=== PATIENT | female | born 1965 | race Caucasian/White ===

== ENCOUNTER 2017-02-19 00:20 | Emergency (ER) | payer SELFPAY ==
[2017-02-19 01:09] VITALS: BP 160/98; BMI 20.9
[2017-02-19] MEDS ORDERED: AZITHROMYCIN 250 MG TABLET PO ONE (01:28)
[2017-02-19] MEDS ORDERED: predniSONE 20 MG TABLET (UD) PO ONE (01:28)
[2017-02-19] MEDS ORDERED: ALBUTEROL SO4 0.083% IH SOL 2.5 MG/3 ML VIAL.NEB. NEB ONE (01:28)
--- NOTE | 2017-02-19 01:43 | PDOC ---
History of Present Illness - General Chief Complaint: Cold Symptoms Stated Complaint: SORE THROAT,SOB Time Seen by Provider: 02/19/17 01:13 History Source: Patient Exam Limitations: No Limitations - History of Present Illness Initial Comments: 02/19/17 01:38 51yo Female patient with no significant past medical history presents to ED c/o cold symptoms, and persistent cough x 3 weeks not getting any better. 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 Patient reports she visited with her PMD and was diagnosed with viral infection and sent home. She now reports cough up yellow sputum. Denies hx: Asthma, or smoking. She denies any other complaints at this time. Timing/Duration: reports: constant, week (3) Severity: reports: moderate. denies: mild, severe Episode Description: See HPI Possible Cause: Yes: illness exposure. No: no prior episodes, other, allergen exposure, chronic episodes, frequent episodes, irritant gases exposure, occasional episodes, smoke exposure, unknown cause Associated Symptoms: reports: cough. denies: denies symptoms, chest pain/ soreness, dizziness, earache, facial pain, fever/chills, headache, lightheadedness, muscle aches, nasal congestion, nasal drainage, shortness of breath, sinus infection, sore throat, wheezing, other Past History - Travel Traveled outside of the country in the last 30 days: No Close contact w/someone who was outside of country & ill: No - Past Medical History Allergies/Adverse Reactions: Allergies Allergy/AdvReac Type Severity Reaction Status Date / Time No Known Allergies Allergy Verified 02/19/17 01:07 Home Medications: Ambulatory Orders Acetaminophen with Codeine [Acetaminophen-Codeine Solution] 12.5 ml PO HS PRN # 100 ml MDD 12.5 ml 02/19/17 Albuterol Sulfate Inhaler - [Ventolin Hfa Inhaler -] 1 - 2 puff IH Q4H PRN #1 inhaler 02/19/17 Azithromycin [Zithromax -] 250 mg PO DAILY #4 tablet 02/19/17 Methylprednisolone [Medrol Dose Anival] 4 mg PO ASDIR #21 tablet 02/19/17 HTN: Yes - Suicide/Smoking/Psychosocial Hx Smoking Status: No Smoking History: Never smoked Have you smoked in the past 12 months: No Number of Cigarettes Smoked Daily: 0 Information on smoking cessation initiated: No Hx Alcohol Use: No Drug/Substance Use Hx: No Substance Use Type: None Respiratory Specific PMHX - Complaint Specific PMHX Angina: No Bronchitis: No Pneumonia: No Pulmonary Embolus: No TB (Tuberculosis): No Review of Systems - Review of Systems Able to Perform ROS?: Yes Is the patient limited Syriac proficient: No Constitutional: No: Chills, Fever Respiratory: Yes: Cough, Productive cough. No: Shortness of Breath, SOB with Exertion, SOB at Rest, Stridor, Wheezing, Hemoptysis Cardiac (ROS): No: Chest Pain, Palpitations, Syncope, Chest Tightness ABD/GI: No: Constipated, Diarrhea, Nausea, Poor Appetite, Poor Fluid Intake, Vomiting, Abdominal cramping All Other Systems: Reviewed and Negative *Physical Exam - Vital Signs Last Vital Signs Temp Pulse Resp BP Pulse Ox 87 14 160/98 98 02/19/17 01:07 02/19/17 01:07 02/19/17 01:07 02/19/17 01:07 - Physical Exam General Appearance: Yes: Nourished, Appropriately Dressed, Mild Distress. No: Apparent Distress, Moderate Distress, Severe Distress HEENT: positive: EOMI, KEVIN, Normal ENT Inspection, Normal Voice, Symmetrical, TMs Normal, Pharynx Normal. negative: Pharyngeal Erythema, Tonsillar Exudate, Tonsillar Erythema, Nasal Congestion, Rhinorrhea, Sinus Tenderness, TM Bulging, TM Dull, TM Erythema Neck: positive: Trachea midline, Normal Thyroid, Supple. negative: Tender, Rigid, Decreased range of motion, Stridor, Lymphadenopathy (R), Lymphadenopathy (L), Tender lateral, Tender midline Respiratory/Chest: positive: Lungs Clear, Normal Breath Sounds. negative: Chest Tender, Respiratory Distress, Accessory Muscle Use, Labored Respiration, Rapid RR, Decreased Breath Sounds, Paradoxal Breathing, Rhonchi, Stridor, Wheezing Cardiovascular: positive: Regular Rhythm, Regular Rate Gastrointestinal/Abdominal: positive: Normal Bowel Sounds, Soft. negative: Distended, Guarding, Rebound, Tenderness Musculoskeletal: positive: Normal Inspection. negative: CVA Tenderness, Decreased Range of Motion, Vertebral Tenderness Extremity: positive: Normal Capillary Refill, Normal Inspection, Normal Range of Motion. negative: Pedal Edema, Swelling, Calf Tenderness, Erythema, Inflammation Integumentary: positive: Normal Color, Dry, Warm. negative: Erythema, Cold, Moist, Rash, Swelling Neurologic: positive: thread roller II-XII NML intact, Fully Oriented, Alert, Normal Mood/ Affect, Normal Response, Motor Strength 5/5 *DC/Admit/Observation/Transfer Diagnosis at time of Disposition: Bronchitis - Discharge Dispostion Disposition: HOME Condition at time of disposition: Stable Admit: No - Prescriptions Prescriptions: Acetaminophen with Codeine [Acetaminophen-Codeine Solution] 12.5 ml PO HS PRN # 100 ml MDD 12.5 ml PRN Reason: coughing, fever Methylprednisolone [Medrol Dose Anival] 4 mg PO ASDIR #21 tablet Albuterol Sulfate Inhaler - [Ventolin Hfa Inhaler -] 1 - 2 puff IH Q4H PRN #1 inhaler PRN Reason: Difficulty breathing Azithromycin [Zithromax -] 250 mg PO DAILY #4 tablet - Patient Instructions Printed Discharge Instructions: DI for Acute Bronchitis Additional Instructions: Take medications as prescribed. Do not drive, drink alcohol, or operate heavy machinery while taking Codeine. Follow up with your primary care provider this week for further evaluation. NO work x 2 days with rest. Drink plenty fluids ( water). Print Language: SRI LANKAN - Post Discharge Activity Forms/Work/School Notes: Back to Work
[2017-02-19] MEDS ORDERED: predniSONE 20 MG TABLET (UD) ONE (01:46)
[2017-02-19] MEDS ORDERED: AZITHROMYCIN 250 MG TABLET ONE (01:46)
[2017-02-19 02:19] VITALS: PULSE 84
== END 2017-02-19 02:20 | disposition home or self-care (01) ==
LOC: JER 00:20
PROC: 3E0F7GC Introduction of Other Therapeutic Substance into Respiratory Tract, Via Natural or Artificial Opening (ICD-10-PCS; principal; 2017-02-19)
DX: J40 Bronchitis, not specified as acute or chronic (principal); I10 Essential (primary) hypertension
CPT/HCPCS: 99281-25

== ENCOUNTER 2017-09-07 03:29 | Inpatient (IN) | payer OTHER ==
--- NOTE | 2017-09-07 03:55 | PDOC ---
History of Present Illness - General History Source: Patient Exam Limitations: No Limitations - History of Present Illness Initial Comments: 09/07/17 04:46 Best Contact: Pmhx: N/A Pshx: N/A Allergies: NKDA 52-year-old female presents to the emergency department complaining of lower abdominal pain 2 weeks. Pain is described as 6/10 dull nonradiating intermittent discomfort with nausea. The pain is exacerbated on touch and is are no alleviating factors. Patient denies vomiting, fever/chills, neck/back pains, chest pain, shortness of breath, flank pains, urinary symptoms: Frequency /urgency/hesitancy, hematuria. Timing/Duration: reports: getting worse <Dariana Kirk - Last Filed: 09/07/17 07:01> <Hannah Hensley - Last Filed: 09/07/17 07:34> - General Chief Complaint: Diarrhea Stated Complaint: FEVER, LOOSE STOOL Time Seen by Provider: 09/07/17 03:55 Past History - Past Medical History COPD: No HTN: Yes - Suicide/Smoking/Psychosocial Hx Smoking Status: No Smoking History: Never smoked Have you smoked in the past 12 months: No Number of Cigarettes Smoked Daily: 0 Information on smoking cessation initiated: No Hx Alcohol Use: No Drug/Substance Use Hx: No Substance Use Type: None <Dariana Kirk - Last Filed: 09/07/17 07:01> <Hannah Hensley - Last Filed: 09/07/17 07:34> - Past Medical History Allergies/Adverse Reactions: Allergies Allergy/AdvReac Type Severity Reaction Status Date / Time No Known Allergies Allergy Verified 09/07/17 03:49 Home Medications: Ambulatory Orders Albuterol Sulfate Inhaler - [Ventolin HFA Inhaler -] 1 - 2 puff IH Q4H PRN #1 inhaler 02/19/17 Prednisone [Prednisone 50 MG TABLETS] 50 mg PO DAILY #5 tablet 02/28/17 predniSONE [Deltasone -] 20 mg PO DAILY #5 tablet 02/28/17 Review of Systems - Review of Systems Able to Perform ROS?: Yes Comments:: 09/07/17 04:47 CONSTITUTIONAL: Absent: fever, chills, diaphoresis, generalized weakness, malaise, loss of appetite HEENT: Absent: rhinorrhea, nasal congestion, throat pain, throat swelling, difficulty swallowing, mouth swelling, ear pain, eye pain, visual Changes CARDIOVASCULAR: Absent: chest pain, loss of consciousness, palpitations, irregular heart rate, peripheral edema RESPIRATORY: Absent: cough, shortness of breath, dyspnea with exertion, orthopnea, wheezing, stridor, hemoptysis GASTROINTESTINAL: +lower abd pain Absent: abdominal distension, nausea, vomiting, constipation, melena, hematochezia GENITOURINARY: Absent: dysuria, frequency, urgency, hesitancy, hematuria, flank pain, genital pain MUSCULOSKELETAL: Absent: myalgia, arthralgia, joint swelling SKIN: Absent: rash, itching, pallor HEMATOLOGIC/IMMUNOLOGIC: Absent: easy bleeding, easy bruising, lymphadenopathy, frequent infections ENDOCRINE: Absent: unexplained weight gain, unexplained weight loss, heat intolerance, cold intolerance Is the patient limited Serbian proficient: No <Dariana Kirk - Last Filed: 09/07/17 07:01> *Physical Exam - Vital Signs Last Vital Signs Temp Pulse Resp BP Pulse Ox 97.6 F 72 20 142/80 98 09/07/17 03:49 09/07/17 03:49 09/07/17 03:49 09/07/17 03:49 09/07/17 03:49 - Physical Exam Comments: 09/07/17 04:49 GENERAL: Well developed, well nourished. Awake and alert. No acute distress. HEENT: Normocephalic, atraumatic. PERRLA, EOMI. No conjunctival pallor. Sclera are non- icteric. Moist mucous membranes. Oropharynx is clear. NECK: Supple. Full ROM. No JVD. Carotid pulses 2+ and symmetric, without bruits. No thyromegaly. No lymphadenopathy. CARDIOVASCULAR: Regular rate and rhythm. No murmurs, rubs, or gallops. Distal pulses are 2+ and symmetric. PULMONARY: No evidence of respiratory distress. Lungs clear to auscultation bilaterally. No wheezing, rales or rhonchi. ABDOMINAL: +lower abd pain Soft. Non-distended. No rebound or guarding. No organomegaly. Normoactive bowel sounds. MUSCULOSKELETAL Normal range of motion at all joints. No bony deformities or tenderness. No CVA tenderness. EXTREMITIES: No cyanosis. No clubbing. No edema. No calf tenderness. SKIN: Warm and dry. Normal capillary refill. No rashes. No jaundice. <YelenaDariana - Last Filed: 09/07/17 07:01> - Vital Signs Last Vital Signs Temp Pulse Resp BP Pulse Ox 98 F 89 15 125/79 100 09/07/17 06:17 09/07/17 06:17 09/07/17 06:17 09/07/17 06:17 09/07/17 06:17 <Hannah Hensley - Last Filed: 09/07/17 07:34> ED Treatment Course - LABORATORY CBC & Chemistry Diagram: 09/07/17 04:06 09/07/17 04:06 - RADIOLOGY Radiograph Interpretation: 09/07/17 06:50 CAT scan abdomen and pelvis: Distended segments of small bowel suggesting a low- grade small bowel shortly after level of the terminal ileum <Dariana Kirk - Last Filed: 09/07/17 07:01> - LABORATORY CBC & Chemistry Diagram: 09/07/17 04:06 09/07/17 04:06 - ADDITIONAL ORDERS Additional order review: Laboratory Results 09/07/17 09/07/17 04:06 04:06 Sodium 141 Potassium 3.7 Chloride 109 H Carbon Dioxide 25 Anion Gap 7 L BUN 15 Creatinine 0.6 Creat Clearance w eGFR > 60 Random Glucose 105 Calcium 8.0 L Total Bilirubin 0.3 AST 34 ALT 49 Alkaline Phosphatase 160 H Total Protein 6.6 Albumin 3.2 L Lipase 202 09/07/17 04:06 RBC 4.49 MCV 85.1 MCHC 35.1 RDW 14.5 MPV 7.9 Neutrophils % 56.4 Lymphocytes % 31.4 Monocytes % 11.2 H Eosinophils % 0.7 Basophils % 0.3 - Medications Given in the ED: ED Medications Discontinued Medications Generic Name Dose Route Start Last Admin Trade Name Freq PRN Reason Stop Dose Admin Sodium Chloride 1,000 mls @ 1,000 mls/hr 09/07/17 03:56 09/07/17 04:04 Normal Saline - IV 09/07/17 04:55 1,000 mls/hr ASDIR STA Administration <Hannah Hensley - Last Filed: 09/07/17 07:34> Progress Note - Progress Note Progress Note: 0653hrs: Microblogged hospitalist 0656hrs: Called Dr. Pisano/surgery fitness consultant [phone] 0705hrs: Signed out to SKYLA Hensley <Dariana Kirk - Last Filed: 09/07/17 07:01> *DC/Admit/Observation/Transfer <Dariana Kirk - Last Filed: 09/07/17 07:01> - Discharge Dispostion Decision to Admit order: Yes <Hannah Hensley - Last Filed: 09/07/17 07:34> Diagnosis at time of Disposition: SBO (small bowel obstruction) - Discharge Dispostion Condition at time of disposition: Guarded
[2017-09-07] MEDS ORDERED: SODIUM CHLORIDE 1,000 ML IV STA (03:56)
[2017-09-07 04:13] LABS: BASO % 0.3 % (0-2.0); EOS % 0.7 % (0-4.5); HEMATOCRIT 38.2 % (32.4-45.2); HEMOGLOBIN 13.4 GM/dL (10.7-15.3); LYMPH % 31.4 % (8-40); MCH 29.8 pg (25.7-33.7); MCHC 35.1 g/dl (32.0-36.0); MEAN CELL VOLUME 85.1 fl (80-96); MEAN PLT VOLUME 7.9 fl (7.5-11.1); MONO % 11.2 % (3.8-10.2); NEUT % 56.4 % (42.8-82.8); PLATELET COUNT 319 K/MM3 (134-434); RBC 4.49 M/mm3 (3.60-5.2); RDW 14.5 % (11.6-15.6); WHITE BLOOD COUNT 8.6 K/mm3 (4.0-10.0)
[2017-09-07 04:42] LABS: ALBUMIN 3.2 g/dl (3.4-5.0); ANION GAP 7 (8-16); BILIRUBIN,TOTAL 0.3 mg/dL (0.2-1.0); BLOOD UREA NITROGEN 15 mg/dL (7-18); CHLORIDE 109 mmol/L (98-107); CO2 25 mmol/L (21-32); CREATININE 0.6 mg/dL (0.55-1.02); GLUCOSE,RANDOM 105 mg/dL (74-106); POTASSIUM 3.7 mmol/L (3.5-5.1); SGOT/AST 34 U/L (15-37); SGPT/ALT 49 U/L (12-78); SODIUM 141 mmol/L (136-145); TOT PROT 6.6 g/dl (6.4-8.2)
[2017-09-07 04:43] LABS: ALK PHOS 160 U/L (45-117)
[2017-09-07] MEDS ORDERED: morphine SULFATE 4 MG/ML VIAL IVPUSH PRN (07:39)
[2017-09-07] MEDS ORDERED: SODIUM CHLORIDE 1,000 ML IV SCH (07:45)
[2017-09-07] MEDS ORDERED: LIDOCAINE HCL 2% JELLY 10 ML CARTRIDGE ONE (07:57)
--- NOTE | 2017-09-07 08:16 | HP ---
CHIEF COMPLAINT: Abdominal Pain and Diarrhea PCP: None HISTORY OF PRESENT ILLNESS: Patient is a 52 year old female with no significant PMHx who presents for lower abdominal pain that started two weeks ago associated with nonbloody watery diarrhea and nausea but no vomiting. Patient reports a nonradiating, intermittent, 6/10 dull-like lower abdomnial pain that is exacerbated when she eats. Patient reports when she does not eat, the pain is better controlled. When the pain does occur, it lasts for several hours. She reports no history of similar pain. She states she's had this for a while now but was unable to get a check up because of how busy her life is. She denies any abdominal surgeries in the past. Patient denies colonoscopy in the past. Otherwise, patient denies fever, chills, chest pain, palpitations, shortness of breath, dysuria, frequency, hematuria, melena, hematochezia, acute vision changes, loss of consciousness. Patient reports never having a colonoscopy done. ER course was notable for: (1) CT revealing SBO (2) IV NS (3) Recent Travel: Denies PAST MEDICAL HISTORY: Denies PAST SURGICAL HISTORY: Denies Social History: Smoking: Denies Alcohol: Denies Drugs: Denies Lives with Daughter and grandchild Family History: Denies Allergies: NKDA HOME MEDICATIONS: Home Medications Medication Instructions Recorded Albuterol Sulfate Inhaler - 1 - 2 puff IH Q4H PRN #1 inhaler 02/19/17 [Ventolin HFA Inhaler -] Prednisone [Prednisone 50 MG 50 mg PO DAILY #5 tablet 02/28/17 TABLETS] predniSONE [Deltasone -] 20 mg PO DAILY #5 tablet 02/28/17 REVIEW OF SYSTEMS CONSTITUTIONAL: Absent: fever, chills, diaphoresis, generalized weakness, malaise, loss of appetite, weight change HEENT: Absent: rhinorrhea, nasal congestion, throat pain, throat swelling, difficulty swallowing, mouth swelling, ear pain, eye pain, visual changes CARDIOVASCULAR: Absent: chest pain, syncope, palpitations, irregular heart rate, lightheadedness , peripheral edema RESPIRATORY: Absent: cough, shortness of breath, dyspnea with exertion, orthopnea, wheezing, stridor, hemoptysis GASTROINTESTINAL: abdominal pain, diarrhea, nausea Absent: abdominal distension, vomiting, constipation, melena, hematochezia GENITOURINARY: Absent: dysuria, frequency, urgency, hesitancy, hematuria, flank pain, genital pain MUSCULOSKELETAL: Absent: myalgia, arthralgia, joint swelling, back pain, neck pain SKIN: Absent: rash, itching, pallor HEMATOLOGIC/IMMUNOLOGIC: Absent: easy bleeding, easy bruising, lymphadenopathy, frequent infections ENDOCRINE: Absent: unexplained weight gain, unexplained weight loss, heat intolerance, cold intolerance NEUROLOGIC: Absent: headache, focal weakness or paresthesias, dizziness, unsteady gait, seizure, mental status changes, bladder or bowel incontinence PSYCHIATRIC: Absent: anxiety, depression, suicidal or homicidal ideation, hallucinations. PHYSICAL EXAMINATION Vital Signs - 24 hr 09/07/17 09/07/17 03:49 06:17 Temperature 97.6 F 98 F Pulse Rate 72 Pulse Rate [ 89 Apical] Respiratory 20 15 Rate Blood Pressure 142/80 Blood Pressure 125/79 [Right Arm] O2 Sat by Pulse 98 100 Oximetry (%) GENERAL: Awake, alert, and fully oriented, in no acute distress. HEAD: Normal with no signs of trauma. EYES: Pupils equal, round and reactive to light, extraocular movements intact, sclera anicteric, conjunctiva clear. No lid lag. EARS, NOSE, THROAT: Oropharynx clear without exudates. Moist mucous membranes. NECK: Normal range of motion, supple without lymphadenopathy, JVD, or masses. LUNGS: Breath sounds equal, clear to auscultation bilaterally. No wheezes, and no crackles. No accessory muscle use. HEART: Regular rate and rhythm, normal S1 and S2 without murmur, rub or gallop. ABDOMEN: Soft, nontender, not distended, hyperactive bowel sounds, no guarding, no rebound, no masses. MUSCULOSKELETAL: No CVA tenderness. UPPER EXTREMITIES: No peripheral edema. LOWER EXTREMITIES: No peripheral edema. NEUROLOGICAL: Cranial nerves II-XII intact. Normal speech. Motor strength 5/5 bilaterally with sensory intact PSYCHIATRIC: Cooperative. Good eye contact. Appropriate mood and affect. SKIN: Warm, dry, normal turgor, no rashes or lesions noted, normal capillary refill. Laboratory Results - last 24 hr CBC, BMP 09/07/17 04:06 09/07/17 04:06 Laboratory Tests 09/07/17 09/07/17 04:06 04:06 AST 34 ALT 49 Alkaline Phosphatase 160 H Total Protein 6.6 Lipase 202 IMAGES: CT Abdomen (09/07/17): Distended segments of small bowel suggesting a low-grade small bowel shortly after level of the terminal ileum, as per night hawk. Official read pending ASSESSMENT/PLAN: Patient is a 52 year old female who presented for a 2 week history of lower abdominal pain associated with nausea and watery diarrhea. Patient was found to have low grade small bowel and admitted for further monitoring and management. Small Bowel Obstruction- Low grade -Official CT read pending -NPO for now -LR @100cc/hr -Patient hesitant to have NG tube placed. Will defer for now as patient currently has no abdominal distention and no vomiting. Surgeron on board -Surgery consult placed -Morphine 4mg IVP Q4H PRN for pain -Will give referral to Dr. Manzo for colonoscopy outpatient upon discharge F/E/N -IV LR @100cc/hr -Potassium 3.7. Replete and repeat -NPO Prophylaxis -Low risk. EAM. SCD's for DVT -No GI required Disposition -Full code -Surgery consult pending and official CT read Nyla Garcia MD PGY-2 Visit type - Emergency Visit Emergency Visit: Yes ED Registration Date: 09/07/17 Care time: The patient presented to the Emergency Department on the above date and was hospitalized for further evaluation of their emergent condition. - New Patient This patient is new to me today: Yes Date on this admission: 09/07/17 - Critical Care Critical Care patient: No Hospitalist Screening - Colonoscopy Questionnaire Colonoscopy Questionnaire: Colonoscopy Questionnaire - Patient: 50 - 75 years old and never had a screening colonoscopy: No History of colon or rectal polyps, or CA: No History of IBD, Crohn's disease or UC: No History of abdominal radiation therapy as a child: No - Relative: 1 with colon or rectal CA, or polyps at age 60 or younger: No Colon or rectal CA diagnosed at age 45 or younger: No Multiple relatives with colon or rectal CA: No - Outcome: Screening Result: Negative Screen
[2017-09-07] MEDS: LACTATED RINGERS SOLUTION 1,000 ML/1,000 ML INFUS.BAG IV SCH (08:52)
--- NOTE | 2017-09-07 09:14 | PN ---
Teaching Attending Note Name of Resident: Nyla Garcia ATTENDING PHYSICIAN STATEMENT I saw and evaluated the patient. I reviewed the resident's note and discussed the case with the resident. I agree with the resident's findings and plan as documented. SUBJECTIVE: This is a 52 year old woman with no significant medical history who comes to the ED complaining of lower abdominal pain, watery diarrhea, and nausea x 2 weeks. Pain is worse when she eats. She denies melena, rectal bleeding, hematemesis. OBJECTIVE: Vital Signs Period Temp Pulse Resp BP Sys/Chandra Pulse Ox Last 24 Hr 97.6 F-98 F 72-89 15-20 125-142/79-80 98-100 HEART: S1S2, RRR LUNGS: Clear ABDOMEN: Soft, non-distended, mild lower abdominal tenderness, no rebound, no guarding, normal BS EXTREMITIES: No edema Laboratory Tests 09/07/17 09/07/17 09/07/17 04:06 04:06 04:06 WBC 8.6 RBC 4.49 Hgb 13.4 Hct 38.2 MCV 85.1 MCH 29.8 MCHC 35.1 RDW 14.5 Plt Count 319 MPV 7.9 Neutrophils % 56.4 Lymphocytes % 31.4 Monocytes % 11.2 H Eosinophils % 0.7 Basophils % 0.3 Sodium 141 Potassium 3.7 Chloride 109 H Carbon Dioxide 25 Anion Gap 7 L BUN 15 Creatinine 0.6 Creat Clearance w eGFR > 60 Random Glucose 105 Lactic Acid Calcium 8.0 L Total Bilirubin 0.3 AST 34 ALT 49 Alkaline Phosphatase 160 H Total Protein 6.6 Albumin 3.2 L Lipase 202 09/07/17 06:38 WBC RBC Hgb Hct MCV MCH MCHC RDW Plt Count MPV Neutrophils % Lymphocytes % Monocytes % Eosinophils % Basophils % Sodium Potassium Chloride Carbon Dioxide Anion Gap BUN Creatinine Creat Clearance w eGFR Random Glucose Lactic Acid 1.2 Calcium Total Bilirubin AST ALT Alkaline Phosphatase Total Protein Albumin Lipase Home Medications Medication Instructions Recorded Albuterol Sulfate Inhaler - 1 - 2 puff IH Q4H PRN #1 inhaler 02/19/17 [Ventolin HFA Inhaler -] Prednisone [Prednisone 50 MG 50 mg PO DAILY #5 tablet 02/28/17 TABLETS] predniSONE [Deltasone -] 20 mg PO DAILY #5 tablet 02/28/17 ASSESSMENT AND PLAN: This is a 52 year old woman with no significant medical history who presents to the ED with abdominal pain, nausea, and diarrhea. 1. Small bowel obstruction - NPO - IV fluid - No indication for NG tube at this time - Surgery consult - Abdominal x-rays in am
--- NOTE | 2017-09-07 10:15 | CONSULT ---
- Consultation REQUESTING PROVIDER: CONSULT REQUEST: We have been asked to surgically evaluate this patient for abdominal pain PCP:Anupam Bhagat MD HISTORY OF PRESENT ILLNESS: 2 weeks or more of non specific lower abdominal pain w/o nausea and or vomiting; no GI//CHANGER FIXER c/o o/w; she has never had a colonoscopy PMHx: asthma PSHx: none Home Medications Medication Instructions Recorded Albuterol Sulfate Inhaler - 1 - 2 puff IH Q4H PRN #1 inhaler 02/19/17 [Ventolin HFA Inhaler -] Prednisone [Prednisone 50 MG 50 mg PO DAILY #5 tablet 02/28/17 TABLETS] predniSONE [Deltasone -] 20 mg PO DAILY #5 tablet 02/28/17 Allergies Allergy/AdvReac Type Severity Reaction Status Date / Time No Known Allergies Allergy Verified 09/07/17 03:49 RPHYSICAL EXAM: GENERAL: Awake, alert, and fully oriented, in no acute distress. HEAD: Normal with no signs of trauma. EYES: sclera anicteric, conjunctiva clear. NECK: Normal ROM, supple without lymphadenopathy, JVD, or masses. ABDOMEN: Soft, nontender, not distended, normoactive bowel sounds, no guarding, no rebound, no masses. No organomegaly. MUSCULOSKELETAL: Normal ROM at all joints. No bony deformities or tenderness. No CVA tenderness. UPPER EXTREMITIES: 2+ pulses, warm, well-perfused. No cyanosis. Cap refill <2 seconds. No peripheral edema. LOWER EXTREMITIES: 2+ pulses, warm, well-perfused. No calf tenderness. No peripheral edema. NEUROLOGICAL: Normal speech, gait not observed. PSYCH: Cooperative. Good eye contact. Appropriate mood and affect. SKIN: Warm, dry, normal turgor, no rashes or lesions noted. Vital Signs Temperature 98 F 09/07/17 06:17 Pulse Rate 89 09/07/17 06:17 Respiratory Rate 15 09/07/17 06:17 Blood Pressure 125/79 09/07/17 06:17 O2 Sat by Pulse Oximetry (%) 100 09/07/17 06:17 Lab Results WBC 8.6 K/mm3 (4.0-10.0) 09/07/17 04:06 RBC 4.49 M/mm3 (3.60-5.2) 09/07/17 04:06 Hgb 13.4 GM/dL (10.7-15.3) 09/07/17 04:06 Hct 38.2 % (32.4-45.2) 09/07/17 04:06 MCV 85.1 fl (80-96) 09/07/17 04:06 MCHC 35.1 g/dl (32.0-36.0) 09/07/17 04:06 RDW 14.5 % (11.6-15.6) 09/07/17 04:06 Plt Count 319 K/MM3 (134-434) 09/07/17 04:06 Sodium 141 mmol/L (136-145) 09/07/17 04:06 Potassium 3.7 mmol/L (3.5-5.1) 09/07/17 04:06 Chloride 109 mmol/L (98-107) H 09/07/17 04:06 Carbon Dioxide 25 mmol/L (21-32) 09/07/17 04:06 Anion Gap 7 (8-16) L 09/07/17 04:06 BUN 15 mg/dL (7-18) 09/07/17 04:06 Creatinine 0.6 mg/dL (0.55-1.02) 09/07/17 04:06 Random Glucose 105 mg/dL (74-106) 09/07/17 04:06 Calcium 8.0 mg/dL (8.5-10.1) L 09/07/17 04:06 CT a/p reviewed IMP:abdominal pain of unknown etiologu PLAN; R/o IBD based on CT though doubt; Gi evaluation and colonoscopy; will f/u. Jose J Pisano MD FACS
[2017-09-08] MEDS: LACTATED RINGERS SOLUTION 1,000 ML/1,000 ML INFUS.BAG IV SCH ×4 (02:28→23:51)
[2017-09-08 08:16] LABS: HEMATOCRIT 41.7 % (32.4-45.2); HEMOGLOBIN 14.2 GM/dL (10.7-15.3); MCH 29.3 pg (25.7-33.7); MCHC 34.1 g/dl (32.0-36.0); MEAN PLT VOLUME 8.4 fl (7.5-11.1); PLATELET COUNT 358 K/MM3 (134-434); RBC 4.84 M/mm3 (3.60-5.2); RDW 14.8 % (11.6-15.6); WHITE BLOOD COUNT 8.7 K/mm3 (4.0-10.0)
--- NOTE | 2017-09-08 08:21 | PN ---
Physical Exam: SUBJECTIVE: Currently pt denies any complaints overnight. She reports feeling comfortable with resolution of her abdominal pain. She also endorses 2-3 loose stools per day for the past 2 weeks without any prior history. Pt denies f/c, melena, dysphagia, CP/discomfort, palpitations, shortness of breath, flushing of face, sick contacts, recent travel, recent ABX treatment, eating strange foods and history of IBD. OBJECTIVE: Vital Signs Period Temp Pulse Resp BP Sys/Chandra Pulse Ox Last 24 Hr 97.6 F-98.3 F 65-96 17-18 111-140/62-77 100-100 GENERAL: NAD, awake, alert, and fully oriented HEENT: EOMI, LORIN, sclera anicteric, moist mucosa LUNGS: CTA bilaterally, no wheezes, no crackles, no accessory muscle use. HEART: RRR, S1, S2 without murmur, rub or gallop. ABDOMEN: Soft, nondistended, normoactive BS, nontender, no guarding, no shifting dullness, no hepatomegaly appreciated EXTREMITIES: 2+ DP pulses, warm, no edema. PSYCH: Normal mood, normal affect. SKIN: Warm, dry, no rashes or lesions noted Active Medications Generic Name Dose Route Start Last Admin Trade Name Freq PRN Reason Stop Dose Admin Lactated Ringer's 1,000 ml in 1,000 mls @ 100 mls/hr 09/07/17 08:15 09/08/17 02:28 Lactated Ringers Solution IV 100 mls/hr ASDIR PAWAN Administration Influenza Virus Vaccine Quadrival 60 mcg 09/08/17 10:00 Flulaval Quad [id number] IM 09/08/17 10:01 .ONCE ONE Morphine Sulfate 2 mg 09/07/17 07:39 Morphine Sulfate IVPUSH Q4H PRN PAIN LEVEL 1 - 3 ASSESSMENT/PLAN: 1) Ileitis with acute mild grade SBO? --Pt's previous AXR showed no evidence of obstruction with some distention and retained contrast material --Dr. Manzo on case: --On review of CTAP he reports concern over ileitis as the cause of a possible delay in bowel function --F/u stool workup --C diff --IBD immunoassays --Ova and parasite --CRP, ESR --Possibiilty of EGD/colonoscopy in future --Pain control with Morphine 2mg IVP q4h FEN: LR @ 100cc/hr No electrolyte abnormalities today Clear liquid for now PPX: DVT - SCDs only GI - Not indicated currently Case discussed with Dr. Dirk Castillo, DO - IM PGY-1 Visit type - Emergency Visit Emergency Visit: No - New Patient This patient is new to me today: No - Critical Care Critical Care patient: No
[2017-09-08 08:28] LABS: INR 1.02 (0.82-1.09); PROTHROMBIN TIME (PATIENT) 11.5 SEC (9.7-13.0)
[2017-09-08 08:36] LABS: ALBUMIN 3.4 g/dl (3.4-5.0); ALK PHOS 118 U/L (45-117); ANION GAP 10 (8-16); BILIRUBIN,TOTAL 0.7 mg/dL (0.2-1.0); BLOOD UREA NITROGEN 11 mg/dL (7-18); CALCIUM 8.7 mg/dL (8.5-10.1); CHLORIDE 107 mmol/L (98-107); CO2 23 mmol/L (21-32); CREATININE 0.5 mg/dL (0.55-1.02); GLUCOSE,RANDOM 60 mg/dL (74-106); POTASSIUM 3.9 mmol/L (3.5-5.1); SGOT/AST 40 U/L (15-37); SGPT/ALT 48 U/L (12-78); SODIUM 140 mmol/L (136-145); TOT PROT 7.1 g/dl (6.4-8.2)
[2017-09-08] MEDS ORDERED: FLU VACCINE QUAD 60 MCG/0.5 ML (MDV 17-18) IM ONE (10:00)
--- NOTE | 2017-09-08 14:28 | CON.GI ---
Consult Consult Specialty:: GI Reason for Consultation:: abnormal CT, diarrhea x 2 weeks, RLQ pain - History of Present Illness History of Present Illness: Chart reviewed. Events noted. PEr initial intake: Patient is a 52 year old female with no significant PMHx who presents for lower abdominal pain that started two weeks ago associated with nonbloody watery diarrhea and nausea but no vomiting. Patient reports a nonradiating, intermittent, 6/10 dull-like lower abdomnial pain that is exacerbated when she eats. Patient reports when she does not eat, the pain is better controlled. When the pain does occur, it lasts for several hours. She reports no history of similar pain. She states she's had this for a while now but was unable to get a check up because of how busy her life is. She denies any abdominal surgeries in the past. Patient denies colonoscopy in the past. Otherwise, patient denies fever, chills, chest pain, palpitations, shortness of breath, dysuria, frequency, hematuria, melena, hematochezia, acute vision changes, loss of consciousness. Patient reports never having a colonoscopy done. CT A/P: distended distal ileum. At the time of this encounter, appears comfortable. Pain-free. Reports having loose stools 3-4/day-night x 2 weeks. No melena, hematochezia, dyspepsia, dysphagia, chronic GERD, or dyspepsia. Deneis weight loss, jaundice, joint, skin , back, eye symptoms. Denies ill contacts, recent travel, exposure to antibiotics, new medications, OTC/herbal remedies, eating out prior to the onset of the symptoms. No family Hx of IBD. No chronic GI issues prior to 2 weeks ago. - History Source History Provided By: Patient, Medical Record Limitations to Obtaining History: No Limitations - Past Medical History ...: No - Alcohol/Substance Use Hx Alcohol Use: No - Smoking History Smoking history: Never smoked Have you smoked in the past 12 months: No Aproximately how many cigarettes per day: 0 Home Medications - Allergies Allergies/Adverse Reactions: Allergies Allergy/AdvReac Type Severity Reaction Status Date / Time No Known Allergies Allergy Verified 09/07/17 03:49 - Home Medications Home Medications: Ambulatory Orders Albuterol Sulfate Inhaler - [Ventolin HFA Inhaler -] 1 - 2 puff IH Q4H PRN #1 inhaler 02/19/17 Prednisone [Prednisone 50 MG TABLETS] 50 mg PO DAILY #5 tablet 02/28/17 predniSONE [Deltasone -] 20 mg PO DAILY #5 tablet 02/28/17 Family Disease History - Family Disease History Family History: Unremarkable (non-contributory) Review of Systems Findings/Remarks: as per HPI, H&P Physical Exam-GI Vital Signs: Vital Signs Temperature 98.3 F 09/08/17 07:59 Pulse Rate 96 H 09/08/17 07:59 Respiratory Rate 18 09/08/17 09:00 Blood Pressure 140/75 09/08/17 07:59 O2 Sat by Pulse Oximetry (%) 99 09/08/17 09:00 Constitutional: Yes: Well Nourished, No Distress, Anxious. No: Mild Distress Eyes: Yes: Conjunctiva Clear HENT: Yes: Atraumatic Neck: Yes: Supple Cardiovascular: Yes: Regular Rate and Rhythm Respiratory: Yes: Regular Gastrointestinal Inspection: No: Ascites, Distention ...Auscultate: Yes: Normoactive Bowel Sounds ...Palpate: Yes: Soft. No: Firm/Rigid, Guarding, Mass, Tenderness ...Rectal Exam: Yes: Guaiac Positive Edema: No Neurological: Yes: Alert, Oriented Labs: CBC, BMP 09/08/17 07:00 09/08/17 07:00 INR, PTT INR 1.02 (0.82-1.09) 09/08/17 07:00 Laboratory Last Values WBC 8.7 K/mm3 (4.0-10.0) 09/08/17 07:00 RBC 4.84 M/mm3 (3.60-5.2) 09/08/17 07:00 Hgb 14.2 GM/dL (10.7-15.3) 09/08/17 07:00 Hct 41.7 % (32.4-45.2) 09/08/17 07:00 MCV 86.0 fl (80-96) 09/08/17 07:00 MCH 29.3 pg (25.7-33.7) 09/08/17 07:00 MCHC 34.1 g/dl (32.0-36.0) 09/08/17 07:00 RDW 14.8 % (11.6-15.6) 09/08/17 07:00 Plt Count 358 K/MM3 (134-434) 09/08/17 07:00 MPV 8.4 fl (7.5-11.1) 09/08/17 07:00 Neutrophils % 56.4 % (42.8-82.8) 09/07/17 04:06 Lymphocytes % 31.4 % (8-40) 09/07/17 04:06 Monocytes % 11.2 % (3.8-10.2) H 09/07/17 04:06 Eosinophils % 0.7 % (0-4.5) 09/07/17 04:06 Basophils % 0.3 % (0-2.0) 09/07/17 04:06 PT with INR 11.50 SEC (9.7-13.0) 09/08/17 07:00 INR 1.02 (0.82-1.09) 09/08/17 07:00 PTT (Actin FS) 32.0 SECONDS (26.9-34.4) 09/08/17 07:00 Sodium 140 mmol/L (136-145) 09/08/17 07:00 Potassium 3.9 mmol/L (3.5-5.1) 09/08/17 07:00 Chloride 107 mmol/L (98-107) 09/08/17 07:00 Carbon Dioxide 23 mmol/L (21-32) 09/08/17 07:00 Anion Gap 10 (8-16) 09/08/17 07:00 BUN 11 mg/dL (7-18) 09/08/17 07:00 Creatinine 0.5 mg/dL (0.55-1.02) L 09/08/17 07:00 Creat Clearance w eGFR > 60 (>60) 09/08/17 07:00 Random Glucose 60 mg/dL (74-106) L 09/08/17 07:00 Lactic Acid 1.2 mmol/L (0.0-2.0) 09/07/17 06:38 Calcium 8.7 mg/dL (8.5-10.1) 09/08/17 07:00 Total Bilirubin 0.7 mg/dL (0.2-1.0) D 09/08/17 07:00 AST 40 U/L (15-37) H 09/08/17 07:00 ALT 48 U/L (12-78) 09/08/17 07:00 Alkaline Phosphatase 118 U/L (45-117) H 09/08/17 07:00 Total Protein 7.1 g/dl (6.4-8.2) 09/08/17 07:00 Albumin 3.4 g/dl (3.4-5.0) 09/08/17 07:00 Lipase 202 U/L (73-393) 09/07/17 04:06 Imaging - Results X-ray: Report Reviewed Cat Scan: Report Reviewed Problem List - Problems (1) Ileitis Code(s): K52.9 - NONINFECTIVE GASTROENTERITIS AND COLITIS, UNSPECIFIED (2) Chronic diarrhea Code(s): K52.9 - NONINFECTIVE GASTROENTERITIS AND COLITIS, UNSPECIFIED Assessment/Plan Follow stool workup, add O&P, c.diff toxin, IBD, CRP, Cipro IV. Clear liquid diet
--- NOTE | 2017-09-08 18:27 | PN ---
Teaching Attending Note Name of Resident: Yuri Castillo ATTENDING PHYSICIAN STATEMENT I saw and evaluated the patient. I reviewed the resident's note and discussed the case with the resident. I agree with the resident's findings and plan as documented. SUBJECTIVE: Patient continues to have diarrhea , started 3 days ago but got worse today. OBJECTIVE: Vital Signs Temperature 98.0 F 09/08/17 14:00 Pulse Rate 86 09/08/17 14:00 Respiratory Rate 18 09/08/17 14:00 Blood Pressure 134/70 09/08/17 14:00 O2 Sat by Pulse Oximetry (%) 99 09/08/17 09:00 CBCD WBC 8.7 K/mm3 (4.0-10.0) 09/08/17 07:00 RBC 4.84 M/mm3 (3.60-5.2) 09/08/17 07:00 Hgb 14.2 GM/dL (10.7-15.3) 09/08/17 07:00 Hct 41.7 % (32.4-45.2) 09/08/17 07:00 MCV 86.0 fl (80-96) 09/08/17 07:00 MCHC 34.1 g/dl (32.0-36.0) 09/08/17 07:00 RDW 14.8 % (11.6-15.6) 09/08/17 07:00 Plt Count 358 K/MM3 (134-434) 09/08/17 07:00 MPV 8.4 fl (7.5-11.1) 09/08/17 07:00 CMP Sodium 140 mmol/L (136-145) 09/08/17 07:00 Potassium 3.9 mmol/L (3.5-5.1) 09/08/17 07:00 Chloride 107 mmol/L (98-107) 09/08/17 07:00 Carbon Dioxide 23 mmol/L (21-32) 09/08/17 07:00 Anion Gap 10 (8-16) 09/08/17 07:00 BUN 11 mg/dL (7-18) 09/08/17 07:00 Creatinine 0.5 mg/dL (0.55-1.02) L 09/08/17 07:00 Creat Clearance w eGFR > 60 (>60) 09/08/17 07:00 Random Glucose 60 mg/dL (74-106) L 09/08/17 07:00 Calcium 8.7 mg/dL (8.5-10.1) 09/08/17 07:00 Total Bilirubin 0.7 mg/dL (0.2-1.0) D 09/08/17 07:00 AST 40 U/L (15-37) H 09/08/17 07:00 ALT 48 U/L (12-78) 09/08/17 07:00 Alkaline Phosphatase 118 U/L (45-117) H 09/08/17 07:00 Total Protein 7.1 g/dl (6.4-8.2) 09/08/17 07:00 Albumin 3.4 g/dl (3.4-5.0) 09/08/17 07:00 Current Medications Generic Name Dose Route Start Last Admin Trade Name Freq PRN Reason Stop Dose Admin Lactated Ringer's 1,000 ml in 1,000 mls @ 100 mls/hr 09/07/17 08:15 09/08/17 13:19 Lactated Ringers Solution IV 100 mls/hr ASDIR PAWAN Administration Levofloxacin 250 mg in 50 mls @ 50 mls/hr 09/08/17 14:45 09/08/17 14:51 Levaquin 250 Mg Premixed Ivpb - IVPB 50 mls/hr DAILY PAWAN Administration Morphine Sulfate 2 mg 09/07/17 07:39 Morphine Sulfate IVPUSH Q4H PRN PAIN LEVEL 1 - 3 Home Medications Medication Instructions Recorded Albuterol Sulfate Inhaler - 1 - 2 puff IH Q4H PRN #1 inhaler 02/19/17 [Ventolin HFA Inhaler -] Prednisone [Prednisone 50 MG 50 mg PO DAILY #5 tablet 02/28/17 TABLETS] predniSONE [Deltasone -] 20 mg PO DAILY #5 tablet 02/28/17 PE: Mild abdominal tenderness ,more L>R Rest of PE per resident's note ASSESSMENT AND PLAN: This is a 52 year old woman with no significant medical history who presents to the ED with abdominal pain, nausea, and diarrhea. # Acute Small bowel obstruction with no nausea and vomiting today , on Clear liquid diet , continue IV fluid, surgical and GI consult appreciated EGD/Colonoscopy as per GI, stool culture pending, stool for cdiff collected, ON IV antibiotic as per GI, will check whether we need to continue IV antibiotic , will monitor , morphine for pain. will DVT Px: SCds, early ambulation
[2017-09-09 08:15] LABS: ALBUMIN 2.8 g/dl (3.4-5.0); ALK PHOS 92 U/L (45-117); ANION GAP 6 (8-16); BILIRUBIN,TOTAL 0.7 mg/dL (0.2-1.0); BLOOD UREA NITROGEN 6 mg/dL (7-18); CALCIUM 8.4 mg/dL (8.5-10.1); CHLORIDE 109 mmol/L (98-107); CO2 29 mmol/L (21-32); CREATININE 0.5 mg/dL (0.55-1.02); GLUCOSE,RANDOM 89 mg/dL (74-106); POTASSIUM 3.9 mmol/L (3.5-5.1); SGOT/AST 31 U/L (15-37); SGPT/ALT 38 U/L (12-78); SODIUM 144 mmol/L (136-145)
--- NOTE | 2017-09-09 09:36 | PN ---
Teaching Attending Note Name of Resident: Yuri Castillo ATTENDING PHYSICIAN STATEMENT I saw and evaluated the patient. I reviewed the resident's note and discussed the case with the resident. I agree with the resident's findings and plan as documented. SUBJECTIVE: Patient is symptom free, no diarrhea today but also patient is npo. OBJECTIVE: Vital Signs Temperature 98.5 F 09/09/17 08:31 Pulse Rate 72 09/09/17 08:31 Respiratory Rate 20 09/09/17 08:31 Blood Pressure 133/74 09/09/17 08:31 O2 Sat by Pulse Oximetry (%) 99 09/08/17 21:00 CBCD WBC 8.7 K/mm3 (4.0-10.0) 09/08/17 07:00 RBC 4.84 M/mm3 (3.60-5.2) 09/08/17 07:00 Hgb 14.2 GM/dL (10.7-15.3) 09/08/17 07:00 Hct 41.7 % (32.4-45.2) 09/08/17 07:00 MCV 86.0 fl (80-96) 09/08/17 07:00 MCHC 34.1 g/dl (32.0-36.0) 09/08/17 07:00 RDW 14.8 % (11.6-15.6) 09/08/17 07:00 Plt Count 358 K/MM3 (134-434) 09/08/17 07:00 MPV 8.4 fl (7.5-11.1) 09/08/17 07:00 CMP Sodium 144 mmol/L (136-145) 09/09/17 06:30 Potassium 3.9 mmol/L (3.5-5.1) 09/09/17 06:30 Chloride 109 mmol/L (98-107) H 09/09/17 06:30 Carbon Dioxide 29 mmol/L (21-32) 09/09/17 06:30 Anion Gap 6 (8-16) L 09/09/17 06:30 BUN 6 mg/dL (7-18) L 09/09/17 06:30 Creatinine 0.5 mg/dL (0.55-1.02) L 09/09/17 06:30 Creat Clearance w eGFR > 60 (>60) 09/09/17 06:30 Random Glucose 89 mg/dL (74-106) 09/09/17 06:30 Calcium 8.4 mg/dL (8.5-10.1) L 09/09/17 06:30 Total Bilirubin 0.7 mg/dL (0.2-1.0) 09/09/17 06:30 AST 31 U/L (15-37) 09/09/17 06:30 ALT 38 U/L (12-78) 09/09/17 06:30 Alkaline Phosphatase 92 U/L (45-117) 09/09/17 06:30 Total Protein 6.0 g/dl (6.4-8.2) L 09/09/17 06:30 Albumin 2.8 g/dl (3.4-5.0) L 09/09/17 06:30 Current Medications Generic Name Dose Route Start Last Admin Trade Name Freq PRN Reason Stop Dose Admin Lactated Ringer's 1,000 ml in 1,000 mls @ 100 mls/hr 09/07/17 08:15 09/08/17 23:51 Lactated Ringers Solution IV 100 mls/hr ASDIR PAWAN Administration Levofloxacin 250 mg in 50 mls @ 50 mls/hr 09/08/17 14:45 09/08/17 14:51 Levaquin 250 Mg Premixed Ivpb - IVPB 50 mls/hr DAILY PAWAN Administration Morphine Sulfate 2 mg 09/07/17 07:39 Morphine Sulfate IVPUSH Q4H PRN PAIN LEVEL 1 - 3 Home Medications Medication Instructions Recorded Albuterol Sulfate Inhaler - 1 - 2 puff IH Q4H PRN #1 inhaler 02/19/17 [Ventolin HFA Inhaler -] Prednisone [Prednisone 50 MG 50 mg PO DAILY #5 tablet 02/28/17 TABLETS] predniSONE [Deltasone -] 20 mg PO DAILY #5 tablet 02/28/17 PE: No abdominal tenderness today Rest of PE per resident's note ASSESSMENT AND PLAN: This is a 52 year old woman with no significant medical history who presents to the ED with abdominal pain, nausea, and diarrhea. # Acute Small bowel obstruction with no nausea and vomiting today , NPO for now , going for colonoscopy in am and EGD.continue IV fluid, surgical and GI consult appreciated. Follow culture result, cdiff and stool. EGD/Colonoscopy as per GI, ON IV antibiotic as per GI. DVT Px: SCds, early ambulation if negative can be discharged post procedure.
--- NOTE | 2017-09-09 09:43 | PN ---
Physical Exam: SUBJECTIVE: Pt was switched to clear liquid diet last night and has been tolerating her food well without nausea and vomiting. She admits to eating slowly, however she continues to pass gas and have some loose/soft BMs. Pt does not have any abdominal pain currently and reports that her prep for colonoscopy will start tonight. OBJECTIVE: Vital Signs Period Temp Pulse Resp BP Sys/Chandra Pulse Ox Last 24 Hr 97.7 F-98.5 F 66-86 16-20 130-153/70-98 99 GENERAL: NAD, awake, alert, and fully oriented HEENT: EOMI, LORIN, sclera anicteric, moist mucosa LUNGS: CTA bilaterally, no wheezes, no crackles, no accessory muscle use. HEART: RRR, S1, S2 without murmur, rub or gallop. ABDOMEN: Soft, nondistended, normoactive BS, nontender, no guarding, no shifting dullness, no hepatomegaly appreciated EXTREMITIES: 2+ DP pulses, warm, no edema. PSYCH: Normal mood, normal affect. SKIN: Warm, dry, no rashes or lesions noted Laboratory Results - last 24 hr 09/09/17 06:30 Sodium 144 Potassium 3.9 Chloride 109 H Carbon Dioxide 29 Anion Gap 6 L BUN 6 L Creatinine 0.5 L Creat Clearance w eGFR > 60 Random Glucose 89 Calcium 8.4 L Total Bilirubin 0.7 AST 31 ALT 38 Alkaline Phosphatase 92 C-Reactive Protein 0.4 H Total Protein 6.0 L Albumin 2.8 L Active Medications Generic Name Dose Route Start Last Admin Trade Name Freq PRN Reason Stop Dose Admin Lactated Ringer's 1,000 ml in 1,000 mls @ 100 mls/hr 09/07/17 08:15 09/08/17 23:51 Lactated Ringers Solution IV 100 mls/hr ASDIR PAWAN Administration Levofloxacin 250 mg in 50 mls @ 50 mls/hr 09/08/17 14:45 09/08/17 14:51 Levaquin 250 Mg Premixed Ivpb - IVPB 50 mls/hr DAILY PAWAN Administration Morphine Sulfate 2 mg 09/07/17 07:39 Morphine Sulfate IVPUSH Q4H PRN PAIN LEVEL 1 - 3 ASSESSMENT/PLAN: 1) Ileitis with acute mild grade SBO? --Pt's previous AXR showed no evidence of obstruction with some distention and retained contrast material --Dr. Manzo on case: --On review of CTAP he reports concern over ileitis as the cause of a possible delay in bowel function --Cdiff cultures sent; will f/u --IBD testing sent --Pt to have EGD/Colonoscopy tomorrow --Prep for tonight --NPO with prep --Pt on Levaquin 250mg IVPB daily for ileitis FEN: LR @ 100cc/hr No electrolyte abnormalities today Clear liquid; will start prep and make NPO for tomorrow's surgery later tonight PPX: DVT - SCDs only GI - Not indicated currently Case discussed with Dr. Dirk Castillo, DO - IM PGY-1 Visit type - Emergency Visit Emergency Visit: No - New Patient This patient is new to me today: No - Critical Care Critical Care patient: No
--- NOTE | 2017-09-09 10:25 | PN ---
Progress Note (short form) - Note Progress Note: Attending Surgeon Feels better; seen bi GI VSS AF abdomen-benign F/U imaging w/o obstruction IMP: improving PLAN: Wii lave colonoscopy; prn surgical f/u pending any abnormality seen on colonoscopy. Jose J Pisano MD FACS
[2017-09-09] MEDS: LACTATED RINGERS SOLUTION 1,000 ML/1,000 ML INFUS.BAG IV SCH ×2 (10:44→21:20)
[2017-09-09 13:27] VITALS: BMI 19.2
--- NOTE | 2017-09-09 15:14 | MSN ---
Progress Note (short form) - Note Progress Note: SUBJECTIVE: Patient seen and examined at bedside this morning. No overnight events, afebrile, and stable vital signs. Patient reports one non-bloody watery bowel movement yesterday. Stool was collected for microbiology and ova/ parasite testing. Diet was advanced from NPO to clear liquids. Patient is tolerating diet well without nausea or vomiting. She denies any abdominal at this time although she continues to feel anxious. She reports that she is scheduled for endoscopy and colonoscopy tomorrow morning and the will drink the prep tonight. She denies fevers/chills, tremulousness, diaphoresis, lightheadedness, headache, dysphagia, chest pain, SOB, myalgias, peripheral edema, or skin rashes. OBJECTIVE: Vital Signs Period Temp Pulse Resp BP Sys/Chandra Pulse Ox Last 24 Hr 97.7 F-98.5 F 66-86 16-20 130-153/73-98 97-99 GENERAL: Mildly anxious woman, younger than stated age, sitting up in bed. Awake , alert and orientated. HEAD: Normal without evidence of trauma EYES: Sclera anicteric, conjunctiva clear, extra-ocular muscles intact, pupils equal round and reactive MOUTH: No lesions or plaques. Mucous membranes moist. PHARYNX: No tonsilar exudates or erythema. Uvula midline. NECK: No JVD. No lymphadenapathy. No thyromegaly. Trachea midline. HEART: Regular at 70 bpm. + S1/S2. No murmurs, rubs or gallops. PMI non- displaced. LUNGS: Clear to auscultation bilaterally. Breath sounds equal. No wheezes or crackles. ABDOMEN: Normoactive bowel sounds. Soft, non-distended. Non-tender. No rebound or guarding. No hepatosplenomegaly. EXTREMITIES: 2 + DP/PT pulses. Capillary refill <2 secs. No peripheral edema. SKIN: No rashes or vesicles. NEURO: Cranial nerves II-XII intact. No facial droop. Normal speech. PSYCH: Anxious. Pleasant and cooperative. Laboratory Results - last 24 hr 09/09/17 09/09/17 06:30 06:30 ESR 14 Sodium 144 Potassium 3.9 Chloride 109 H Carbon Dioxide 29 Anion Gap 6 L BUN 6 L Creatinine 0.5 L Creat Clearance w eGFR > 60 Random Glucose 89 Calcium 8.4 L Total Bilirubin 0.7 AST 31 ALT 38 Alkaline Phosphatase 92 C-Reactive Protein 0.4 H Total Protein 6.0 L Albumin 2.8 L Current Medications Generic Name Dose Route Start Last Admin Trade Name Freq PRN Reason Stop Dose Admin Lactated Ringer's 1,000 ml in 1,000 mls @ 100 mls/hr 09/07/17 08:15 09/09/17 10:44 Lactated Ringers Solution IV 100 mls/hr ASDIR PAWAN Administration Levofloxacin 250 mg in 50 mls @ 50 mls/hr 09/08/17 14:45 09/09/17 10:34 Levaquin 250 Mg Premixed Ivpb - IVPB 50 mls/hr DAILY PAWAN Administration Morphine Sulfate 2 mg 09/07/17 07:39 Morphine Sulfate IVPUSH Q4H PRN PAIN LEVEL 1 - 3 IMAGING: CT ABD/PELVIS (09-07-17)- Distal ileum appears mildly distended with a maximum luminal diameter of approx. 2.7 cm. Is probable mild involvement of terminal ileum. Mildly dilated distal small bowel is noted suggestive of mild obstruction. ABD X-ray (09-08-17)-No evidence of small bowel obstruction. Air and contrast distended colon with questionable sigmoid narrowing. ASSESSMENT/PLAN: 52 yr old woman with hx of asthma presented to ED with 2 weeks of right-sided abdominal pain associated with watery diarrhea and was found to have imaging concerning for mild small bowel obstruction and ileal inflammation. #Abdominal pain 2/2 to ileitis with probable resolved mild small bowel obstruction -Patient no longer complains of abdominal pain; repeat abd x-ray does not show evidence of obstruction -Dr. Manzo reviewed CT abd demonstrating distal ileal dilation suggestive of ileitis -EGD/colonscopy scheduled for tomorrow -Patient NPO at dinner except for prep and recommended water -IV levaquin 250 mg IV QD for treatment of ileitus -Pain control morphine 2 mg Q4H prn-patient has not required pain medication since 09-07 #Subacute diarrhea-improved -Decreased stool while patient has been NPO -Stool collected for ova/parasite, c. diff., and microbiology -Work-up for inflammatory bowel disease with serology and antibody testing #F/E/N -Lactated ringers at 100 cc/hr -Clear diet until transition to NPO for EGD/colonoscopy tomorrow am #DVT prophylaxis -SCDs #Dispo-Pending EGD/colonoscopy
[2017-09-09] MEDS ORDERED: BISACODYL 5 MG TABLET.DR (FP) PO ONE (16:15)
[2017-09-09] MEDS ORDERED: PEG 3350/NA SULF BICARB CL/KCL 4000 ML SOLN.RECON PO ONE (18:00)
[2017-09-10] MEDS: LACTATED RINGERS SOLUTION 1,000 ML/1,000 ML INFUS.BAG IV SCH ×2 (05:55→08:30)
[2017-09-10] MEDS ORDERED: PROPOFOL 20 ML ONE ×2 (09:03)
[2017-09-10] MEDS ORDERED: LIDOCAINE HCL/PF 2% SDV 5ML VIAL ONE (09:04)
--- NOTE | 2017-09-10 10:32 | PROC ---
Endoscopy Procedure Endoscopy procedure completed. Please see scanned procedure report. Hard, large submucosal nodule was found in the cecum and biopsied. Normal appearing TI, and the rest of the colon. Random biopsies taken. Cobblestoning of mucosa noted in the 2nd portion of the duodenum. Biopsies taken. Mild gastritis in the body of the stomach. Biopsies taken 1 cm hiatal hernia Follow path OctreoScan Plasma 5-HIAA
[2017-09-10 12:03] LABS: ANION GAP 6 (8-16); BLOOD UREA NITROGEN 4 mg/dL (7-18); CALCIUM 8.6 mg/dL (8.5-10.1); CHLORIDE 108 mmol/L (98-107); CO2 30 mmol/L (21-32); GLUCOSE,RANDOM 89 mg/dL (74-106); POTASSIUM 3.6 mmol/L (3.5-5.1); SODIUM 144 mmol/L (136-145)
[2017-09-10 12:05] LABS: CREATININE 0.6 mg/dL (0.55-1.02)
--- NOTE | 2017-09-10 14:03 | MSN ---
Progress Note (short form) - Note Progress Note: SUBJECTIVE: Overnight, patient completed preparation for scheduled EGD/ colonoscopy. Patient finished drinking golytely solution before midnight. NPO after midnight for EGD/colonoscopy later today. Bowel movements are now clear liquid. Patient was noted to be hypertensive (164/101) overnight. No medications administered. Patient on anti-hypertensives 2 years prior but discontinued now. Repeat blood pressure 147/90. Other vital signs stable. This morning patient states that her stomach feels sensitive but denies pain. She is anxious about the procedure today. She denies fevers/chills, episodes of flushing, headache, nausea/vomiting, chest pain, shortness of breath, or leg swelling. OBJECTIVE: Vital Signs Period Temp Pulse Resp BP Sys/Chandra Pulse Ox Last 24 Hr 97.4 F-98.0 F 50-68 11-20 116-164/59-101 96-100 GENERAL: Mildly anxious woman appearing younger than stated age, seated on edge of bed. Awake, alert, and orientated. HEAD: Normal without evidence of trauma. EYES: Sclera anicteric. Conjunctiva clear. Extra-ocular muscles intact. Pupils equal round and reactive. MOUTH: No lesions or plaques. No ulcerations or petechiae. PHARYNX: No tonsilar exudates. No erythema. NECK: No lymphadenopathy. No thyromegaly. Trachea midline. CARDIOVASCULAR: Regular at 60 bpm. +S1/S2. No murmurs, rubs, or gallops. LUNGS: Clear to auscultation bilaterally. No wheezes or crackles. ABDOMEN: Normoactive bowel sounds. Non-distended. Non-tender. Soft. No rebound or guarding. No hepatosplenomegaly. EXTREMITIES: 2 + DP pulses b/l. No peripheral edema. No joint effusions or gross deformities. SKIN: No lesions or rashes. NEURO: CN II-XII grossly intact. 5/5 muscle strength. Normal speech. PSYCH: Anxious. Pleasant and cooperative. Laboratory Last Values WBC 8.7 K/mm3 (4.0-10.0) 09/08/17 07:00 RBC 4.84 M/mm3 (3.60-5.2) 09/08/17 07:00 Hgb 14.2 GM/dL (10.7-15.3) 09/08/17 07:00 Hct 41.7 % (32.4-45.2) 09/08/17 07:00 MCV 86.0 fl (80-96) 09/08/17 07:00 MCH 29.3 pg (25.7-33.7) 09/08/17 07:00 MCHC 34.1 g/dl (32.0-36.0) 09/08/17 07:00 RDW 14.8 % (11.6-15.6) 09/08/17 07:00 Plt Count 358 K/MM3 (134-434) 09/08/17 07:00 MPV 8.4 fl (7.5-11.1) 09/08/17 07:00 Neutrophils % 56.4 % (42.8-82.8) 09/07/17 04:06 Lymphocytes % 31.4 % (8-40) 09/07/17 04:06 Monocytes % 11.2 % (3.8-10.2) H 09/07/17 04:06 Eosinophils % 0.7 % (0-4.5) 09/07/17 04:06 Basophils % 0.3 % (0-2.0) 09/07/17 04:06 ESR 14 mm/hr (0-30) 09/09/17 06:30 PT with INR 11.50 SEC (9.7-13.0) 09/08/17 07:00 INR 1.02 (0.82-1.09) 09/08/17 07:00 PTT (Actin FS) 32.0 SECONDS (26.9-34.4) 09/08/17 07:00 Sodium 144 mmol/L (136-145) 09/10/17 11:20 Potassium 3.6 mmol/L (3.5-5.1) 09/10/17 11:20 Chloride 108 mmol/L (98-107) H 09/10/17 11:20 Carbon Dioxide 30 mmol/L (21-32) 09/10/17 11:20 Anion Gap 6 (8-16) L 09/10/17 11:20 BUN 4 mg/dL (7-18) L 09/10/17 11:20 Creatinine 0.6 mg/dL (0.55-1.02) 09/10/17 11:20 Creat Clearance w eGFR > 60 (>60) 09/09/17 06:30 Random Glucose 89 mg/dL (74-106) 09/10/17 11:20 Lactic Acid 1.2 mmol/L (0.0-2.0) 09/07/17 06:38 Calcium 8.6 mg/dL (8.5-10.1) 09/10/17 11:20 Total Bilirubin 0.7 mg/dL (0.2-1.0) 09/09/17 06:30 AST 31 U/L (15-37) 09/09/17 06:30 ALT 38 U/L (12-78) 09/09/17 06:30 Alkaline Phosphatase 92 U/L (45-117) 09/09/17 06:30 C-Reactive Protein 0.4 MG/DL (0.00-0.3) H 09/09/17 06:30 Total Protein 6.0 g/dl (6.4-8.2) L 09/09/17 06:30 Albumin 2.8 g/dl (3.4-5.0) L 09/09/17 06:30 Lipase 202 U/L (73-393) 09/07/17 04:06 Current Medications Generic Name Dose Route Start Last Admin Trade Name Freq PRN Reason Stop Dose Admin Levofloxacin 250 mg in 50 mls @ 50 mls/hr 09/08/17 14:45 09/10/17 12:38 Levaquin 250 Mg Premixed Ivpb - IVPB 50 mls/hr DAILY PAWAN Administration Morphine Sulfate 2 mg 09/07/17 07:39 Morphine Sulfate IVPUSH Q4H PRN PAIN LEVEL 1 - 3 IMAGING: CT ABD/PELVIS (09-07-17)- Distal ileum appears mildly distended with a maximum luminal diameter of approx. 2.7 cm. Is probable mild involvement of terminal ileum. Mildly dilated distal small bowel is noted suggestive of mild obstruction. ABD X-ray (09-08-17)-No evidence of small bowel obstruction. Air and contrast distended colon with questionable sigmoid narrowing. EGD/COLONOSCOPY: Mild gastritis. 1 cm hiatal hernia. Cobblestoning in 2nd part of the doudenum. Submucosal nodule in the cecum. ASSESSMENT/PLAN: 52 yr old woman with no significant hx presented to ED with 2 weeks of right- sided abdominal pain associated with watery diarrhea and was found to have imaging concerning for mild small bowel obstruction and ileal inflammation. #Abdominal pain likely 2/2 to ileitis and probable mild small bowel obstruction -Patient no longer complains of abdominal pain or nausea -Dr. Manzo reviewed CT abd demonstrating distal ileal dilation suggestive of ileitis -EGD/colonoscopy today demonstrating subepithelia nodule located at the cecum -Biopsies taken in the small bowel and of the nodule -Following procedure resume normal diet as tolerated -IV levaquin 250 mg IV QD discontinued -Biopsies taken during endoscopy will be followed-up -Dr. Pisano re-consulted for evaluation of cecal nodule #Subacute diarrhea-improved -Stool decreased while patient NPO however with colonoscopy prep unable to reassess diarrhea -Stool collected for ova/parasite, c. diff., and microbiology -C. diff negative for antigen; No growth of enteric bacteria except for campylobacter pending -Work-up for inflammatory bowel disease with serology and antibody testing pending -ESR within normal limits (14); mild elevation of CRP (0.4) -Serum 5-HT, urine 5-HIAA ordered to evaluate for possibility of carcinoid syndrome -Octerotide scan recommended as outpatient procedure #Mild gastritis and small hiatal hernia-Found on endoscopy -Protonix 20 mg QD #Elevated blood pressure -No treatment at this time -Recommend that patient follow-up in outpatient setting for repeat blood pressure measurement in a less stressful environment before re-starting anti- hypertensive #F/E/N -Begin normal diet at lunch after endoscopy -Encourage PO water intake #DVT prophylaxis -SCDs #Dispo-pending 5-HIAA collection and surgical consultation
--- NOTE | 2017-09-10 15:51 | PN ---
Teaching Attending Note Name of Resident: Yuri Castillo ATTENDING PHYSICIAN STATEMENT I saw and evaluated the patient. I reviewed the resident's note and discussed the case with the resident. I agree with the resident's findings and plan as documented. SUBJECTIVE: No abd pain, no blood and stool. felt light headed after EGD/colonoscopy OBJECTIVE: NAD . MMM CV: RRR lungs: CTAB Ext : no edema Abd: soft, NT, ND , NL BS ASSESSMENT AND PLAN: 52 y/o lady who presented with diarrhea x 2 weeks , she was found to have SBO 1- SBO. colonoscopy showed a mass in cecum ( suspicious for carcinoid) - case d/w Dr. Manzo - check serotonin. 5-HIAA - Octreoscan ordered, declined by department - case d/w Sx. out pt follow up after bx results are back - start regular diet 2- Gastritis on EGD. abnormal duodenal mucosa. - PPI - follow bx results dispo : possible dc tomorrow
--- NOTE | 2017-09-10 17:46 | PN ---
Physical Exam: SUBJECTIVE: Pt to have colonoscopy/EGD today. She reports having copious amounts of watery diarrhea with bowel prep; no blood noted. Pt continues to have no complaints currently. OBJECTIVE: Vital Signs Period Temp Pulse Resp BP Sys/Chandra Pulse Ox Last 24 Hr 97.4 F-98 F 50-68 11-20 116-164/59-101 96-100 GENERAL: NAD, awake, alert, and fully oriented HEENT: EOMI, LORIN, sclera anicteric, moist mucosa LUNGS: CTA bilaterally, no wheezes/rhonchi/rales. no accessory muscle use. HEART: RRR, S1, S2 without murmur ABDOMEN: Soft, nondistended, normoactive BS, nontender, no guarding, no shifting dullness, no hepatomegaly appreciated EXTREMITIES: 2+ DP pulses, warm, no edema. PSYCH: Normal mood, normal affect. SKIN: Warm, dry, no rashes or lesions noted Laboratory Results - last 24 hr 09/10/17 11:20 Sodium 144 Potassium 3.6 Chloride 108 H Carbon Dioxide 30 Anion Gap 6 L BUN 4 L Creatinine 0.6 Random Glucose 89 Calcium 8.6 Active Medications Generic Name Dose Route Start Last Admin Trade Name Freq PRN Reason Stop Dose Admin Pantoprazole Sodium 20 mg 09/10/17 16:00 Protonix - PO DAILY PAWAN ASSESSMENT/PLAN: 1) Cecal mass --Dr. Manzo on case --Colonoscopy/EGD today revealed submucosal mass in cecum well circumscribed and mild gastritis --Biopsies taken and sent to pathology --Reconsulted Dr. Pisano: Nothing to do until pathology reports are back --Must r/o carcinoid syndrome --Serotonin serum lvl --5-HIAA 24hr urine collection --Cannot do an octreotide scan due to facility not having the octreotide dose needed with indium-11 (recommend outpt setting) --Pt denies any symptoms including but not limited to flushing, headaches --Liver US for further confirmation of no masses present --Can discontinue Levaquin as no overt inflammation seen on colonoscopy --Added protonix 20mg PO qdaily FEN: Discontinue fluids; pt tolerating PO No abnormalities today Regular diet today PPX: DVT - SCDs only GI - Already on Protonix 20mg qdaily Dispo: D/C planning Case discussed with Dr. Loretta Castillo, DO - IM PGY-1 Visit type - Emergency Visit Emergency Visit: No - New Patient This patient is new to me today: No - Critical Care Critical Care patient: No
[2017-09-10] MEDS: PANTOPRAZOLE 20 MG TABLET (FP) PO SCH (18:00)
[2017-09-11 08:17] LABS: HEMATOCRIT 41.1 % (32.4-45.2); HEMOGLOBIN 13.9 GM/dL (10.7-15.3); MCH 29.3 pg (25.7-33.7); MCHC 33.8 g/dl (32.0-36.0); MEAN CELL VOLUME 86.7 fl (80-96); MEAN PLT VOLUME 8.4 fl (7.5-11.1); PLATELET COUNT 318 K/MM3 (134-434); RBC 4.74 M/mm3 (3.60-5.2); RDW 14.9 % (11.6-15.6); WHITE BLOOD COUNT 8.8 K/mm3 (4.0-10.0)
[2017-09-11 08:40] LABS: CHLORIDE 109 mmol/L (98-107); POTASSIUM 3.9 mmol/L (3.5-5.1); SODIUM 142 mmol/L (136-145)
[2017-09-11 08:45] LABS: ANION GAP 9 (8-16); BLOOD UREA NITROGEN 11 mg/dL (7-18); CALCIUM 8.2 mg/dL (8.5-10.1); CO2 24 mmol/L (21-32); CREATININE 0.7 mg/dL (0.55-1.02); GLUCOSE,RANDOM 103 mg/dL (74-106)
[2017-09-11] MEDS: PANTOPRAZOLE 20 MG TABLET (FP) PO SCH (10:19)
--- NOTE | 2017-09-11 12:38 | PN ---
Teaching Attending Note Name of Resident: Trinity Juarez ATTENDING PHYSICIAN STATEMENT I saw and evaluated the patient. I reviewed the resident's note and discussed the case with the resident. I agree with the resident's findings and plan as documented. SUBJECTIVE: no fever or chills . no abd pain. 2 BMs today. no SOB . OBJECTIVE: NAD. MMM CV: RRR lungs: CTAB Ext: no edema Abd: soft, NT, ND , NL BS ASSESSMENT AND PLAN: 52 y/o lady who presented with diarrhea x 2 weeks , she was found to have SBO 1- SBO. colonoscopy showed a mass in cecum ( suspicious for carcinoid) - follow serum serotonin and urine 5-HIAA. - Octreoscan as out pt after biopsy results and blood work confirming carcinoids - f/u with Sx as ou tpt 2- Gastritis on EGD. abnormal duodenal mucosa. - PPI - follow bx results for HP dispo : Dc today after collecting 24 hr urine for 5-HIAA
--- NOTE | 2017-09-11 12:49 | PN ---
Progress Note (short form) - Note Progress Note: Attending Surgeon No c/o; for sigmoid colon resection; possible left colectomy 09/12/17; r/b/t/a' s d/w the patient and with her daughter in [facility] via telephone; orders place for bowel prep and T and S; informed consent to be obtained. Jose J Pisano MD FACS
--- NOTE | 2017-09-11 13:26 | MSN ---
Progress Note (short form) - Note Progress Note: SUBJECTIVE: Patient seen and examined at bedside this morning. No acute events overnight. Vital signs stable. Patient had 2 dark brown liquid bowel movements since colonoscopy. She has resumed a normal diet and is eating and voiding well. She is very anxious about the continued diarrhea and colonoscopy findings. She complains only of the continued diarrhea and a fleeting generalized burning sensation in her abdomen associated with bowel movements. She denies fever/chills, lightheadedness, flushing, nausea/vomiting, SOB, chest pain, wheezing, or muscle/joint pains. OBJECTIVE: Vital Signs Period Temp Pulse Resp BP Sys/Chandra Pulse Ox Last 24 Hr 97.4 F-98.7 F 67-84 18-20 121-144/72-88 100-100 GENERAL: Mildly anxious woman appearing younger than stated age, seated on edge of bed. Awake, alert, and orientated. HEAD: Normal without evidence of trauma. EYES: Sclera anicteric. Conjunctiva clear. Extra-ocular muscles intact. Pupils equal round and reactive. MOUTH: No lesions or plaques. No ulcerations or petechiae. PHARYNX: No tonsilar exudates. No erythema. NECK: No jugular venous distention. No lymphadenopathy. No thyromegaly. Trachea midline. CARDIOVASCULAR: Regular at 70 bpm. +S1/S2. No murmurs, rubs, or gallops. LUNGS: Clear to auscultation bilaterally. No wheezes or crackles. ABDOMEN: Normoactive bowel sounds. Non-distended. Mild suprapubic tenderness to palpation. Soft. No rebound or guarding. No hepatosplenomegaly. EXTREMITIES: 2 + DP pulses b/l. No peripheral edema. No joint effusions or gross deformities. SKIN: No lesions or rashes. NEURO: CN II-XII grossly intact. 5/5 muscle strength. Normal speech. PSYCH: Anxious. Pleasant and cooperative. CBC, BMP 09/11/17 07:35 09/11/17 07:35 Microbiology 09/07/17 05:00 Stool Salmonella/Shigella Culture - Final NO GROWTH OF SALMONELLA OR SHIGELLA SPECIES OBTAINED 09/07/17 05:00 Stool Campylobacter Culture - Final NO GROWTH OF CAMPYLOBACTER SPECIES OBTAINED 09/07/17 05:00 Stool Yersinia Culture - Final NO GROWTH OF YERSINIA SPECIES OBTAINED 09/07/17 05:00 Stool Vibrio Culture - Final NO GROWTH OF VIBRIO SPECIES OBTAINED 09/07/17 05:00 Stool Escherichia coli 0157 Culture - Final NO GROWTH OF E COLI 0157 OBTAINED 09/08/17 17:00 Stool Clostridium difficile Antigen (WILLOW) - Final 09/08/17 17:00 Stool Clostridium difficile Toxin Assay - Final Current Medications Generic Name Dose Route Start Last Admin Trade Name Freq PRN Reason Stop Dose Admin Pantoprazole Sodium 20 mg 09/10/17 16:00 09/11/17 10:19 Protonix - PO 20 mg DAILY PAWAN Administration IMAGING: CT ABD/PELVIS (09-07-17)- Distal ileum appears mildly distended with a maximum luminal diameter of approx. 2.7 cm. Is probable mild involvement of terminal ileum. Mildly dilated distal small bowel is noted suggestive of mild obstruction. ABD X-ray (09-08-17)-No evidence of small bowel obstruction. Air and contrast distended colon with questionable sigmoid narrowing. EGD/COLONOSCOPY (09-10-17): Mild gastritis. 1 cm hiatal hernia. Cobblestoning in 2nd part of the doudenum. Submucosal nodule in the cecum. ASSESSMENT/PLAN: 52 yr old woman with no significant hx presented to ED with 2 weeks of right- sided abdominal pain associated with watery diarrhea and was found to have a cecal mass. #Submucosal cecal nodule- -May represent neoplasm (including carcinoid, lymphoma, GIST, adenocarcinoma or metastasis), mesenteritis, or appendiceal mucocele -Follow-up pathology of biopsies taken in the small bowel and of the nodule as outpatient -IV levaquin 250 mg IV QD discontinued -To evaluate for neuroendocrine tumor serum 5-HT pending and 24-hr urine 5- HIAA being collected today -Liver ultrasound ordered to evaluate for metastases-results pending -Dr. Pisano re-consulted for evaluation of cecal nodule and will evaluate case when pathology reported #Subacute diarrhea -Stool decreased while patient NPO however with colonoscopy prep unable to reassess diarrhea -Stool collected for ova/parasite, c. diff., and microbiology -C. diff negative for antigen; No growth of enteric bacteria -Work-up for inflammatory bowel disease with serology and antibody testing pending -ESR within normal limits (14); mild elevation of CRP (0.4) #Mild gastritis and small hiatal hernia-Found on endoscopy -Protonix 20 mg QD x 14 days #Elevated blood pressure -No treatment at this time -Recommend that patient follow-up in outpatient setting for repeat blood pressure measurement in a less stressful environment before re-starting anti- hypertensive #F/E/N -Begin normal diet at lunch after endoscopy -Encourage PO water intake #DVT prophylaxis -SCDs #Dispo-pending 24-hr 5-HIAA collection with outpatient follow-up
--- NOTE | 2017-09-11 14:08 | PATH ---
Surgical Pathology Report Patient Name: KATELYN PEACOCK [facility]. Rec. #: [id number] /Age/Gender: 1965 (Age: 52) / F Account: [id number] Location: [address] [place] [address] Taken: 09/10/2017 Received: 09/10/2017 Reported: 09/11/2017 Physicians: Prince Manzo M.D. Specimen(s) Received A: BX DUODENUM B: BX ANTRUM BODY C: BX TERMINAL ILEUM D: BX CECUM NODULAR E: BX SIGMOID F: BX RECTUM Clinical History Postoperative diagnosis: Gastritis, duodenitis, cecal nodule Final Diagnosis A. DUODENUM, BIOPSY: DUODENAL MUCOSA SHOWING INTRAEPITHELIAL LYMPHOCYTOSIS AND CHRONIC INFLAMMATION IN THE LAMINA PROPRIA. COMMENT: FINDINGS ARE COMPATIBLE WITH CELIAC DISEASE IN A PROPER CLINICAL SETTING. PLEASE CORRELATE WITH SEROLOGY STUDY RESULTS. B. ANTRUM/BODY, BIOPSY: GASTRIC MUCOSA WITH CHRONIC GASTRITIS. IMMUNOSTAIN IS NEGATIVE FOR H. PYLORI ORGANISMS. C. TERMINAL ILEUM, BIOPSY: TERMINAL ILEAL MUCOSA WITH CHRONIC INFLAMMATION AND REACTIVE LYMPHOID AGGREGATES. D. CECAL NODULE, BIOPSY: COLONIC MUCOSA WITH MILD CHRONIC INFLAMMATION AND REACTIVE LYMPHOID AGGREGATES. E. SIGMOID COLON, BIOPSY: COLONIC MUCOSA WITH MILD CHRONIC INFLAMMATION AND REACTIVE LYMPHOID AGGREGATE. F. RECTUM, BIOPSY: COLONIC MUCOSA WITH REACTIVE LYMPHOID AGGREGATES. Electronically Signed Kamini Rg M.D. Gross Description A. Received in formalin, labeled " biopsy duodenum" is a nogueira, irregular portion of soft tissue measuring 0.3 cm. in greatest dimension. The specimen is submitted in toto in one cassette. B. Received in formalin, labeled " biopsy antrum/body" are 2 nogueira, irregular portions of soft tissue averaging 0.3 cm. in greatest dimension. The specimens are submitted in toto in one cassette. C. Received in formalin, labeled " biopsy terminal ileum" are 3 nogueira, irregular portions of soft tissue averaging 0.2 cm. in greatest dimension. The specimens are submitted in toto in one cassette. D. Received in formalin, labeled " biopsy cecal nodule" are 3 nogueira, irregular portions of soft tissue averaging 0.2 cm. in greatest dimension. The specimens are submitted in toto in one cassette. E. Received in formalin, labeled " biopsy sigmoid colon" are 2 nogueira, irregular portions of soft tissue measuring 0.3 and 0.4 cm. in greatest dimension. The specimens are submitted in toto in one cassette. F. Received in formalin, labeled " biopsy rectum" are 2 nogueira, irregular portions of soft tissue measuring 0.4 and 0.6 cm. in greatest dimension. The specimens are submitted in toto in one cassette. 09/10/2017 [facility]09/10/2017
--- NOTE | 2017-09-11 14:21 | PN ---
Progress Note, Physician History of Present Illness: Biopsy results noted. - Current Medication List Current Medications: Active Medications Pantoprazole Sodium (Protonix -) 20 mg PO DAILY PAWAN Last Admin: 09/11/17 10:19 Dose: 20 mg - Objective Vital Signs: Vital Signs Temperature 97.4 F L 09/11/17 13:27 Pulse Rate 78 09/11/17 13:27 Respiratory Rate 18 09/11/17 13:27 Blood Pressure 137/81 09/11/17 13:27 O2 Sat by Pulse Oximetry (%) 100 09/11/17 09:00 Labs: CBC, BMP 09/11/17 07:35 09/11/17 07:35 INR, PTT INR 1.02 (0.82-1.09) 09/08/17 07:00 Problem List - Problems (1) Ileitis Code(s): K52.9 - NONINFECTIVE GASTROENTERITIS AND COLITIS, UNSPECIFIED (2) Chronic diarrhea Code(s): K52.9 - NONINFECTIVE GASTROENTERITIS AND COLITIS, UNSPECIFIED Assessment/Plan Celiac panel ordered. Follow urine and blood work. Rule out carcinoid.
[2017-09-11 19:19] VITALS: BP 132/75; PULSE 74; TEMP 97.5
[2017-09-13 16:18] LABS: GLIADIN ANTIBODY IGA 12 units (0-19); GLIADIN ANTIBODY IGG 2 units (0-19); TRANSGLUTAMINASE IGG 2 U/mL (0-5)
== END 2017-09-11 19:53 | disposition home or self-care (01) | DRG 247 ==
LOC: JER 03:29 → JERBED 07:34 → J5S 09:55
PROVIDERS: ADMIT Internal Medicine; ATTEND Internal Medicine
PROC: 0DD68ZX Extraction of Stomach, Via Natural or Artificial Opening Endoscopic, Diagnostic (ICD-10-PCS; 2017-09-10)
PROC: 0DDB8ZX Extraction of Ileum, Via Natural or Artificial Opening Endoscopic, Diagnostic (ICD-10-PCS; 2017-09-10)
PROC: 0DDN8ZX Extraction of Sigmoid Colon, Via Natural or Artificial Opening Endoscopic, Diagnostic (ICD-10-PCS; 2017-09-10)
PROC: 0DDP8ZX Extraction of Rectum, Via Natural or Artificial Opening Endoscopic, Diagnostic (ICD-10-PCS; 2017-09-10)
PROC: 0DDH8ZX Extraction of Cecum, Via Natural or Artificial Opening Endoscopic, Diagnostic (ICD-10-PCS; 2017-09-10)
PROC: 0DD98ZX Extraction of Duodenum, Via Natural or Artificial Opening Endoscopic, Diagnostic (ICD-10-PCS; principal; 2017-09-10 14:30)
DX: K56.690 Other partial intestinal obstruction (principal); K52.9 Noninfective gastroenteritis and colitis, unspecified; K29.50 Unspecified chronic gastritis without bleeding; K44.9 Diaphragmatic hernia without obstruction or gangrene; K63.9 Disease of intestine, unspecified
CPT/HCPCS: 36415; 74019-TC-FY; 74177-TC; 76705-TC; 80048; 80053; 82784; 83497; 83516; 83605; 83690; 84260; 85025; 85027; 85610; 85651; 85730; 86140; 86255; 86671; 87045; 87046; 87177; 87209; 87324; 87449; 88305-TC; 99284-25; J7030

== ENCOUNTER 2022-03-30 19:42 | Emergency (ER) | payer OTHER ==
[2022-03-30 19:46] VITALS: BP 161/80; PULSE 83; RESP 18; TEMP 97.7
[2022-03-30] MEDS ORDERED: FLUORESCEIN NA 1 EA STRIP OS ONE (22:11)
[2022-03-30] MEDS ORDERED: TETRACAINE 0.5% HCL 0.6ML DROPPER.BOTTLE OS ONE (22:11)
[2022-03-30] MEDS ORDERED: FLUORESCEIN NA 1 EA STRIP ONE (22:11)
== END 2022-03-30 22:27 | disposition home or self-care (01) ==
LOC: JERFT 19:42
DX: S05.02XA Injury of conjunctiva and corneal abrasion without foreign body, left eye, initial encounter (principal); Y99.8 Other external cause status
CPT/HCPCS: 99283-25